=== PATIENT | male | born 1985 | race Two or more races ===

== ENCOUNTER → 2016-04-05 | Outpatient (CLI) | payer MEDICAID ==
--- NOTE | 2016-04-06 14:33 | CPEEG ---
[f rep st] ELECTROENCEPHALOGRAM DATE OF STUDY: 04/05/2016 DATE OF INTERPRETATION: 04/06/2016. INTERPRETATION: Normal EEG during wakefulness and sleep. There were no potentially epileptogenic ab normalities present recording. REPORT: This EEG contains 9-10 Hz alpha activity to the posterior head regions. There was no abnorm al activation at rest, during photic stimulation, or hyperventilation. The patient became drowsy and fell into sustained sleep during the study. There was no abnormal activation during drowsiness, sle ep, or during times of arousal. /[id number]/MODL
== END ==
LOC: FCPNEURO 14:17
PROVIDERS: ATTEND Physician Assistant Medical
DX: G47.52 REM sleep behavior disorder (principal); R55 Syncope and collapse